=== PATIENT | female | born 1990 | race Caucasian/White ===

== ENCOUNTER 2020-03-24 13:51 | Emergency (ER) | payer BC, SELFPAY ==
[2020-03-24 13:55] VITALS: BP 127/71; PULSE 86; RESP 18; TEMP 36.7; O2SAT 99; BMI 23.9
--- NOTE | 2020-03-24 14:12 | HMH.EDUTC ---
[facility] [place] Clinical Impression: Viral syndrome, Exposure to COVID-19 virus Disposition: Home, Self-Care Condition on Discharge: Good Instructions: DI for COVID-19 (Suspected or Confirmed ), Preventing the Spread of Coronavirus Discharge Instructions Additional Instructions: Drink plenty of fluids. Take tylenol for pain or fever. Return if you begin to have difficulty breathing. Follow up with your regular doctor. GO TO THE ER FOR ANY WORSENING SYMPTOMS Prescriptions: Ondansetron [Zofran 4mg ODT] 4 mg PO Q8HP PRN #12 tab.rapdis PRN Reason: Nausea Transmission Status: [facility] Referrals: Tin Francois MD [Primary Care Provider] - Time of Disposition: 14:31 Medical Decision Making - Medical Records Medical records reviewed: No: I reviewed the patient's medical records. - Janusz Inquiry Pt receiving controlled substance: No Vital Signs: 03/24/20 13:55 03/24/20 14:20 Temperature 98.0 F 98.0 F Temperature Source Oral Pulse Rate 86 Pulse Rate [Right Brachial] 86 Respiratory Rate 18 18 Blood Pressure 127/71 Blood Pressure [Right Arm] 127/71 Blood Pressure Mean [Right Arm] 89 Blood Pressure Source [Right Arm] Automatic Cuff Blood Pressure Position [Right Arm] Sitting 02 Sat by Pulse Oximetry 99 Oxygen Delivery Method Room Air - Lab Data Lab Results 03/24/20 14:10: Strep Scn Rapid Clinic Negative Orders (Tests/Meds): ORDERS Category Date Time Status Covid-19 Nasal PCR ([facility]) Routine Lab 03/24/20 14:00 Received Strep Screen Confirmation Stat Micro 03/24/20 14:10 Received [facility] [place] - General Stated complaint: covid test Time Seen by Provider: 03/24/20 14:12 Mode of Arrival: Ambulatory Source of Information: Patient Limitations: No Limitations Description of Symptoms (Recalled from Triage Doc. by RN): COVID TEST D/T EXPOSURE 10 DAYS AGO. C/O SORE THROAT, HEADACHE AND BODY ACHES SINCE YESTERDAY HEENT Symptoms (Recalled from RN notes): Yes Resp Symptoms (Recalled from RN notes): No Skin Symptoms (Recalled from RN notes): No MS Symptoms (Recalled from RN notes): No Functional Status (Recalled from RN notes): WNL - History of Present Illness Provider Complaint: She c/o 1 day of sore throat, sinus congestion and body aches. She was exposed to covid several days ago. - Related Data Previous Rx's Medication Instructions Recorded Ondansetron [Zofran 4mg ODT] 4 mg PO Q8HP PRN #12 tab.rapdis 03/24/20 Allergies Allergy/AdvReac Type Severity Reaction Status Date / Time No Known Allergies Allergy Verified 03/24/20 14:09 - Worker's Comp Is this a Worker's Comp case?: No [facility] History - Hepatitis A Screen Drug use history?: No High risk sexual behaviors?: No History of sexually transmitted infection?: No Currently employed?: No Childcare worker?: No Do you have indoor plumbing?: Yes Do you have electricity?: Yes Attestation statement:: This patient has been screened for Hepatitis A risk factors. I have reviewed the patient's past medical history: Yes - Social History Alcohol Intake: never Occupational Status: other ROS Obtained: Yes All systems reviewed & no additional complaints - Constitutional Constitutional: Reports system reviewed and no additional complaints, except as docu - Eyes Eyes: Reports system reviewed and no additional complaints, except as docu - ENT Ears, Nose, Mouth, and Throat: Reports system reviewed and no additional complaints, except as docu - Cardiovascular Cardiovascular: Reports system reviewed and no additional complaints, except as docu - Respiratory Respiratory: Reports system reviewed and no additional complaints, except as docu - Gastrointestinal Gastrointestingal: Reports: system reviewed and no additional complaints, except as docu Physical Exam - General General appearance: alert, in no apparent distress - Head Head exam: atraumatic, normoceph
[2020-03-24 14:20] VITALS: BP 127/71; PULSE 86; RESP 18; TEMP 36.7; O2SAT 99
[2020-03-24 14:22] LABS: UTC Strep Screen (Rapid) Negative (Negative)
--- NOTE | 2020-03-24 20:33 | PC.NURSE ---
PATIENT NOTIFIED OF POSITIVE COVID TEST AT THIS TIME
== END 2020-03-24 14:35 | disposition home or self-care (01) ==
PROVIDERS: Emergency Provider Nurse Practitioner Family; PCP Family Medicine
DX: U07.1 COVID-19 (principal); B34.9 Viral infection, unspecified
CPT/HCPCS: 87880; 99202; G0463; U0003

== ENCOUNTER 2020-10-16 09:44 | Emergency (ER) | payer BC, SELFPAY ==
[2020-10-16 10:17] VITALS: BP 112/74; PULSE 82; RESP 16; TEMP 36.8; O2SAT 100; BMI 24.7
[2020-10-16 10:26] LABS: Adenovirus,PCR Not Detected (NotDetected); Bordetella Pertussis Not Detected (NotDetected); Chlamydophila Pneumoniae, PCR Not Detected (NotDetected); Coronavirus 19, PCR Not Detected (NotDetected); Coronavirus 229E Not Detected (NotDetected); Coronavirus NL63 Not Detected (NotDetected); Coronavirus OC43 Not Detected (NotDetected); Coronovirus HKU1,PCR Not Detected (NotDetected); Human Metapneumovirus Not Detected (NotDetected); Influenza A, PCR Not Detected (NotDetected); Influenza AH1, 2009 Not Detected (NotDetected); Influenza AH1, PCR Not Detected (NotDetected); Influenza AH3,PCR Not Detected (NotDetected); Influenza B, PCR Not Detected (NotDetected); Parainfluenza 1, PCR Not Detected (NotDetected); Parainfluenza 2, PCR Not Detected (NotDetected); Parainfluenza 3, PCR Not Detected (NotDetected); Parainfluenza 4, PCR Not Detected (NotDetected); Respiratory Syncytial Virus Not Detected (NotDetected)
[2020-10-16 10:27] LABS: Mycoplasma Pneumoniae, PCR Not Detected (NotDetected)
--- NOTE | 2020-10-16 10:27 | HMH.EDUTC ---
[facility] [place] Disposition Clinical Impression: Sinusitis Qualifiers: Sinusitis location: unspecified location Chronicity: unspecified Qualified Code(s): J32.9 - Chronic sinusitis, unspecified Disposition: Home, Self-Care Condition on Discharge: Good Instructions: Sinusitis, DI for Sinusitis, DI for COVID-19 (Suspected or Confirmed ), Coronavirus Disease 2018, Preventing the Spread of Coronavirus Discharge Instructions Additional Instructions: *Monitor Temp, Over the counter Motrin or Tylenol as directed/as needed Tylenol every 4 hours and Motrin every 6 hours (as long as your family doctor has told you that you can take it) for fever or pain. and straight to ER if unable to lower temp less than 101.0 after medication given *Warm salt water gargles may help to soothe the throat *Throat Lozenges *Warm fluids like tea with honey may help to soothe the throat *Sleep elevated *Humidifier/Vaporizer Your throat swab was sent for culture. Those results are typically sent to your primary care. Be sure to follow up in 2-3 days with your family doctor/primary care physician if no improvement so they can review those result and treat if necessary. If you don?t have a primary care doctor, I recommend you get one but in the mean time, you will have to return to a walk in clinic Follow up IMMEDIATELY for new or worsening symptoms or no Noticeable improvement over the next 48-72 hours. 911 for difficulty breathing or swallowing You were tested for today for COVID19 your test result should be back in the next 24-48 hours, you may call to the [facility] to see if your test results are back in the next 48 hours [phone] [facility] hours are 9am-9pm You was given a handout with instructions for Self Quarantine and Self isolation for while you wait on test results and what to do if they are positive If you are positive the Health Dept will be contacting you also Prescriptions: methylPREDNISolone [Medrol 4mg tab] 4 mg PO DIRECTED #21 tab [facility] Azithromycin [Z-Kali 250mg Tab] 250 mg PO DIRECTED #6 tab Transmission Status: Pending to [facility] Referrals: Fadia Junior PA [Primary Care Provider] - As needed Forms: Work/School Release Time of Disposition: 10:29 Medical Decision Making - Janusz Inquiry Pt receiving controlled substance: No Janusz was queried for this patient: No Vital Signs: 10/16/20 10:17 Temperature 98.2 F Temperature Source Oral Pulse Rate [Left] 82 Respiratory Rate 16 Blood Pressure [Right Arm] 112/74 Blood Pressure Mean [Right Arm] 86 02 Sat by Pulse Oximetry 100 Orders (Tests/Meds): ORDERS Category Date Time Status Full Resp Panel w/COVID ([facility]) Routine Lab 10/16/20 10:21 Ordered Medical Decision Narrative: Patient denies any chance of [facility] [place] HPI - General Stated complaint: covid test, symtpoms Time Seen by Provider: 10/16/20 10:27 Mode of Arrival: Ambulatory Source of Information: Patient Limitations: No Limitations Description of Symptoms (Recalled from Triage Doc. by RN): pt c/o sore throat, loss of smell and congestion. HEENT Symptoms (Recalled from RN notes): Yes (congestion, loss of smell and sore throat) Resp Symptoms (Recalled from RN notes): No Skin Symptoms (Recalled from RN notes): No MS Symptoms (Recalled from RN notes): No Functional Status (Recalled from RN notes): na - History of Present Illness Provider Complaint: Patient state that she has been having sore throat, yellowish green mucous from her nose so she thought she had a sinus infection and was trying to wait it out but then she loss he smell and nothing tastes right so she came in to get checked and get tested for COVID - Related Data Previous Rx's Medication Instructions Recorded Ondansetron [Zofran 4mg ODT] 4 mg PO Q8HP PRN #12 tab.rapdis 03/24/20 Azithromycin [Z-Kali 250mg Tab] 250 mg PO DIRECTED #6 tab 10/16/20 methylPREDNISolone [Medr
[2020-10-16 10:49] VITALS: BP 000/00; PULSE 0; RESP 0; TEMP -17.7; TEMP 0
[2020-10-16 12:36] LABS: Rhinovirus/Enterovirus Detected (NotDetected)
== END 2020-10-16 10:49 | disposition home or self-care (01) ==
PROVIDERS: Emergency Provider Nurse Practitioner; PCP Physician Assistant
DX: J32.9 Chronic sinusitis, unspecified (principal); Z20.822 Contact with and (suspected) exposure to COVID-19
CPT/HCPCS: 87581; 87633; 87798; 99202; G0463

== ENCOUNTER 2021-05-09 11:44 | Emergency (ER) | payer BC, SELFPAY ==
[2021-05-09 11:50] VITALS: BP 104/74; PULSE 102; RESP 18; TEMP 36.8; O2SAT 99; BMI 22.4
--- NOTE | 2021-05-09 12:37 | HMH.EDUTC ---
[facility] [place] Disposition Clinical Impression: Sinusitis Qualifiers: Sinusitis location: unspecified location Chronicity: unspecified Qualified Code(s): J32.9 - Chronic sinusitis, unspecified Disposition: Home, Self-Care Condition on Discharge: Good Instructions: Diarrhea, DI for Sinusitis, Nausea and Vomiting-Adult Additional Instructions: *Monitor Temp, Over the counter Motrin or Tylenol as directed/as needed Tylenol every 4 hours and Motrin every 6 hours (as long as your family doctor has told you that you can take it) for fever or pain. and straight to ER if unable to lower temp less than 101.0 after medication given *Warm salt water gargles may help to soothe the throat *Throat Lozenges *Warm fluids like tea with honey may help to soothe the throat *Sleep elevated *Humidifier/Vaporizer Drink extra fluids with and between meals. If you have difficulty drinking, try very small amounts of water or suck on ice chips. ? Avoid fruit juices, as these do not replace minerals and can actually increase diarrhea. ? Children and adults can use sports drinks to replenish electrolytes. Younger children and infants should use products formulated for children, like oral rehydration solutions. ? Eat food in small amounts and let your stomach recover. ? Get lots of rest. You may feel tired or weak. ? No greasy or fried foods for the next 24-48 hours BRAT diet Bananas Rice Apples and [place] ? Make sure to drink plenty of liquids ? Return if needed ? Straight to ER if any life threatening symptoms ? Zofran as prescribed ? Follow up with family doctor in the next 48-72 hours if no improvement or any worsening of symptoms Follow up IMMEDIATELY for new or worsening symptoms or no Noticeable improvement over the next 48-72 hours. 911 for difficulty breathing or swallowing Prescriptions: methylPREDNISolone [Medrol 4mg tab] 4 mg PO DIRECTED #21 tab Transmission Status: Received by [facility] Azithromycin [Z-Kali 250mg Tab] 250 mg PO DIRECTED #6 tab [facility]: [facility] Ondansetron [Zofran 4mg ODT] 4 mg PO TIDP PRN #9 tab PRN Reason: Vomiting Transmission Status: [facility] Referrals: Tin Francois MD [Primary Care Provider] - As needed Time of Disposition: 13:09 Medical Decision Making - Janusz Inquiry Pt receiving controlled substance: No Janusz was queried for this patient: No Vital Signs: 05/09/21 11:50 05/09/21 13:11 Temperature 98.3 F 98.3 F Temperature Source Oral Pulse Rate 102 H Pulse Rate [Right Brachial] 102 H Respiratory Rate 18 18 Blood Pressure 104/74 L Blood Pressure [Right Arm] 104/74 L Blood Pressure Mean [Right Arm] 84 Blood Pressure Source [Right Arm] Automatic Cuff Blood Pressure Position [Right Arm] Sitting 02 Sat by Pulse Oximetry 99 Oxygen Delivery Method Room Air - Lab Data Lab results reviewed: Yes: I reviewed the patient's lab results. Lab Results 05/09/21 12:50: Tst Clinic Negative [facility] [place] HPI - General Stated complaint: congestion, vomiting, diarrhea Time Seen by Provider: 05/09/21 12:38 Mode of Arrival: Ambulatory Source of Information: Patient Limitations: No Limitations Description of Symptoms (Recalled from Triage Doc. by RN): PATIENT C/O VOMITING, DIARRHEA, SINUS INFECTION AND FEVER X 3 DAYS HEENT Symptoms (Recalled from RN notes): Yes Resp Symptoms (Recalled from RN notes): No Skin Symptoms (Recalled from RN notes): No MS Symptoms (Recalled from RN notes): No Functional Status (Recalled from RN notes): WNL - History of Present Illness Provider Complaint: Patient state that she has been having sinus pain and pressure along with drianage in back of her throat for over a week and n/v/d for the last couple of days State that today she is still having pressure behind her eyes and not able to keep anything down so she came in to get checked - Related Data Previous Rx's Medication Inst
[2021-05-09 12:58] LABS: UTC Pregnancy Test, Urine Negative (Negative)
[2021-05-09 13:11] VITALS: BP 104/74; PULSE 102; RESP 18; TEMP 36.8; O2SAT 99
== END 2021-05-09 13:20 | disposition home or self-care (01) ==
PROVIDERS: Emergency Provider Nurse Practitioner; PCP Family Medicine
DX: J32.8 Other chronic sinusitis (principal); R11.2 Nausea with vomiting, unspecified; R19.7 Diarrhea, unspecified; Z79.52 Long term (current) use of systemic steroids; Z79.899 Other long term (current) drug therapy
CPT/HCPCS: 81025; 99213; G0463

== ENCOUNTER → 2021-05-12 01:26 | Outpatient (CLI) | payer BC, SELFPAY | PROVIDERS: PCP Family Medicine; Visit Provider Emergency Medicine | DX: R11.2 Nausea with vomiting, unspecified (principal); R19.7 Diarrhea, unspecified ==

== ENCOUNTER 2023-11-30 14:01 | Outpatient (CLI) | payer BC, SELFPAY ==
[2023-11-30 12:05] LABS: Microscopic, Urine URINE MICROSCOPIC (MICROSCOPIC)
[2023-11-30 12:48] LABS: Basophils % 0.5 % (0.1-2.0); Eosinophils # 0.1 K/mm3 (0.0-0.4); Eosinophils % 2.4 % (0.1-12.0); Hemoglobin 13.5 g/dL (12.2-16.2); Lymphocytes # 2.2 K/mm3 (0.7-4.5); Lymphocytes % 38.3 % (10-50); Mean Corpuscular HGB Conc 31.4 g/dL (31.8-35.4); Mean Corpuscular Hemoglobin 29.9 pg (27.0-31.2); Mean Corpuscular Volume 95.3 fl (81-99); Mean Platelet Volume 9.2 fl (7.4-10.4); Monocytes # 0.4 K/mm3 (0.1-1.0); Monocytes % 7.6 % (1.7-9.3); Neutrophils # 2.9 K/mm3 (1.8-7.8); Neutrophils % 51.1 % (37.0-80.0); Platelet Count 224 K/mm3 (142-424); Red Blood Count 4.51 M/mm3 (4.20-5.40); Red Cell Distribution Width 13.1 % (11.5-17.5); White Blood Count 5.6 K/mm3 (4.8-10.8)
[2023-11-30 12:57] LABS: Appearance,Urine CLEAR (Clear); Bilirubin,Urine Negative (Negative); Blood, Urine 2+ (Negative); Color,Urine YELLOW (Yellow); Glucose,Urine (UA) Negative (Negative); Ketones,Urine Negative (Negative); Leukocyte Esterase,Urine Negative (Negative); Nitrate,Urine Negative (Negative); Protein,Urine Negative (Negative); Urobilinogen,Urine 0.2 EU/dl (0.2)
[2023-11-30 13:15] LABS: Squamous Epithelial Cell,Urine Occasional #/hpf (0-5)
[2023-11-30 13:25] LABS: Albumin Level 4.8 g/dl (3.5-5.0); Chloride 108 mmol/L (98-107)
[2023-11-30 13:26] LABS: Potassium 4.3 mmoL/L (3.5-5.1); Sodium 140 mmol/L (136-145)
[2023-11-30 13:28] LABS: Alanine Aminotransferase 44 U/L (12-78); Alkaline Phosphatase 67 U/L (38-126); Anion Gap 8.3 mEq/L (5-15); Aspartate Amino Transferase 38 U/L (14-36); Bilirubin,Total 0.8 mg/dl (0.2-1.3); Blood Urea Nitrogen 12 mg/dl (7-17); Carbon Dioxide 28 mmol/L (22.0-30.0); Estimated Glomerular Filt Rate 83 ml/min (>60); GFR (African American) 101 ML/MIN (>60); Globulin 2.4 g/dL (1.3-3.2); Iron 89 ug/dL (37-170); Total Protein,Serum 7.2 g/dl (6.3-8.2); Triglycerides 93 mg/dl (30-150); VLDL Cholesterol 19 mg/dL (0-40)
[2023-11-30 13:29] LABS: Calcium 9.8 mg/dl (8.4-10.2); Chol/HDL Ratio 2.2 (1-3.5); Cholesterol 215 mg/dl (140-200); Glucose 82 mg/dl (74-100); HDL Cholesterol 99 mg/dl (40-60)
[2023-11-30 13:39] LABS: Total Iron Binding Capacity 354 ug/dL (265-497)
[2023-11-30 13:52] LABS: Free T4 (Free Thyroxine) 1.26 ng/dl (0.78-2.19)
[2023-11-30 14:02] LABS: Thyroid Stimulating Hormone 2.23 uIU/mL (0.465-4.68)
[2023-11-30 14:06] LABS: Ferritin 18.8 ng/ml (6.24-137)
[2023-11-30 14:14] LABS: 25-OH Vitamin D, Total 55.7 ng/mL (30-100)
[2023-11-30 14:51] LABS: Vitamin B12 570 pg/mL (239-931)
[2023-11-30 15:26] LABS: Hemoglobin A1C 5.2 % (4.0-6.0)
[2023-11-30 15:39] LABS: HIV (1&2) Antibody Rapid NONREACTIVE (NONREACTIVE)
[2023-12-01 08:35] LABS: HCV Ab Non Reactive (Non Reactive)
== END 2023-11-30 23:59 | disposition home or self-care (01) ==
LOC: LAB.DROPOF 14:01
PROVIDERS: PCP Nurse Practitioner Family; Visit Provider Nurse Practitioner Family
DX: Z11.59 Encounter for screening for other viral diseases (principal); Z11.4 Encounter for screening for human immunodeficiency virus [HIV]; R53.83 Other fatigue; Z00.00 Encounter for general adult medical examination without abnormal findings; Z76.89 Persons encountering health services in other specified circumstances; Z13.1 Encounter for screening for diabetes mellitus; Z13.220 Encounter for screening for lipoid disorders
CPT/HCPCS: 80050; 80053; 80061; 81001; 82306; 82607; 82728; 83036; 83540; 83550; 84439; 84443; 85025; 86803; 87086; 87389